=== PATIENT | male | born 1980 | race Caucasian/White ===

== ENCOUNTER 2017-09-25 11:16 | Emergency (ER) | payer SELFPAY ==
[~2017-09-25] VITALS: Ht 188 cm; Wt 79.9 kg
[2017-09-25 11:30] VITALS: BP 121/77
[2017-09-25 12:00] LABS: HEMATOCRIT 43.1 % (38.0-50.0); HEMOGLOBIN 14.4 G/DL (12.5-16.6); MCH 29.4 PG (29.0-34.0); MCHC 33.4 G/DL (30.0-36.0); PLATELET COUNT 233 K/uL (156-360); RBC DIS.WIDTH-CV 12.9 % (11.8-14.6); RBC DIS.WIDTH-SD 41.3 % (39-53); WHITE BLOOD COUNT 4.9 K/uL (4.1-10.2)
[2017-09-25 12:14] LABS: CHLORIDE 108 mEq/L (99-109); SODIUM 145 mEq/L (136-147)
[2017-09-25 12:16] LABS: GLUCOSE 73 mg/dL (70-99)
[2017-09-25 12:20] LABS: CREATININE 1.2 mg/dL (0.6-1.3)
[2017-09-25 12:21] LABS: UREA NITROGEN (BUN) 9 mg/dL (9-23)
[2017-09-25 12:25] LABS: TROP-I INTERPRETATION NEGATIVE; TROPONIN-I < 0.01 ng/mL (0.0-0.30)
[2017-09-25 12:31] LABS: GFR ESTIMATE (CALCULATED) > 59 mL/min/ (58.99-99999)
== END 2017-09-25 13:00 | disposition left against medical advice (07) ==
LOC: EME 11:16
DX: R07.9 Chest pain, unspecified (principal); F17.200 Nicotine dependence, unspecified, uncomplicated
CPT/HCPCS: 71046; 80048; 84484; 85027; 93005